=== PATIENT | female | born 1975 | race African-American/Black ===

== ENCOUNTER 2017-05-19 19:17 | Emergency (ER) | payer OTHER ==
[~2017-05-19] VITALS: Wt 60.5 kg
[~2017-05-19 19:17] MED LIST: ACET500C5 PO; IBUP-1542 PO; IBUP800T25 PO; METH-493 PO
[2017-05-19] MEDS ORDERED: CYCL-319 PO (20:14)
[2017-05-19] MEDS ORDERED: NAPR-260 PO (20:14)
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
== END 2017-05-19 20:22 | disposition home or self-care (01) ==
LOC: FTE 19:17
DX: S19.9XXA Unspecified injury of neck, initial encounter (principal); S29.9XXA Unspecified injury of thorax, initial encounter; V49.40XA Driver injured in collision with unspecified motor vehicles in traffic accident, initial encounter
CPT/HCPCS: 99283

== ENCOUNTER 2018-02-18 06:56 | Emergency (ER) | END 2018-02-18 09:05 | disposition home or self-care (01) ==

== ENCOUNTER 2018-02-21 22:03 | Emergency (ER) | END 2018-02-22 02:24 | disposition home or self-care (01) ==

== ENCOUNTER 2019-05-11 08:52 | Emergency (ER) | payer OTHER ==
[~2019-05-11] VITALS: Wt 58.0 kg
[~2019-05-11 08:52] MED LIST changes: +CYCL10TA7 PO; +DOCU-144 PO; +FER325 PO; +FLUT9.9S NASAL; -IBUP800T25 PO; +IBUP800T48 PO; +NAPR-985 PO; +PSEU30TA38 PO; +SODI104S2 NASAL; +TRIA15OI9 TOP
[2019-05-11 08:55] VITALS: BP 104/62; PULSE 67; RESP 18
== END 2019-05-11 10:06 | disposition home or self-care (01) ==
LOC: FTE 08:52
DX: L30.9 Dermatitis, unspecified (principal)
CPT/HCPCS: 99283